=== PATIENT | female | born 1975 | race Caucasian/White ===

== ENCOUNTER 2017-01-28 00:12 | Observation (INO) | payer OTHER ==
[2017-01-28] VITALS (7 sets, daily range): BP systolic 103–121; BP diastolic 55–73
[~2017-01-28] VITALS: Ht 160 cm; Wt 72.1 kg
--- NOTE | 2017-01-28 03:54 | ED CLINICAL REPORT ---
Clinical Report - Physicians/Mid Levels [facility] [address] [place] [address] 01/28/2017 0:15 Patient: SOLOMON SWAN Time Seen: 00:42. Arrived- By private vehicle. Historian- patient. HISTORY OF PRESENT ILLNESS Chief Complaint: PALPITATIONS. Modifying factors- (improves with movement). This started several days ago and is still present and now worse. History of caffeine use prior to onset. No history of decongestants use prior to onset, cocaine use prior to onset or amphetamine use prior to onset. It was gradual in onset and has been constant and waxing/waning. It is described as missing beats. She did not lose consciousness. She felt like might "pass out" and complains of dizziness. The patient has had generalized chest tightness. No difficulty breathing or sweating episodes. She has had dizziness and tingling in hands. REVIEW OF SYSTEMS Last normal menstrual period- she has not had one for 4 or 5 years due to her BC implant. No chills, fever, sweats, calf pain or difficulty breathing. No pedal edema, abdominal pain, black stools, bloody stools or diarrhea. No nausea, vomiting or urinary problems. The patient has had mild constipation (chronically). She has had similar symptoms previously. All systems otherwise negative, except as recorded above. PAST HISTORY PCP - [facility]. SOCIAL HISTORY Smoker- current status unknown (chews tobacco). Regular alcohol use. No drug use. Is a local resident. FAMILY HISTORY Cancer in grandparent. ADDITIONAL NOTES The nursing notes have been reviewed. PHYSICAL EXAM Vital Signs: 01/28/2017 00:23 BP: 143/81. HR: 91. RR: 15. O2 saturation: 100%. Temp: 98.5 F. Sarmiento-Hyed pain scale: 2/10. Have been reviewed. Appearance: Alert. Eyes: Pupils equal, round and reactive to light. ENT: Pharynx normal. Neck: Normal inspection. Neck supple. CVS: Normal heart rate and rhythm. Heart sounds normal. Respiratory: No respiratory distress. Breath sounds normal. Abdomen: Soft and nontender. Bowel sounds normal. No organomegaly. No mass. Back: Normal external inspection. No CVA tenderness. Skin: Skin warm and dry. Normal skin color. Normal skin turgor. Extremities: Extremities exhibit normal ROM. No calf tenderness. No lower extremity edema. LABS, X-RAYS, AND EKG EKG: Rate: 81. Incomplete RBBB. Mild ST depression in lead II, III, aVF, V4, V5 and V6. T wave inversion in lead II, III, aVF, V1, V2, V3 and V4. EKG #2: Incomplete RBBB. T wave inversion in lead aVF, V1, V2 and V4 and flattening in lead aVF, V5 and V6. EKG unchanged when compared with prior EKG. (from earlier this visit). Chest X-ray: No acute disease. Laboratory Tests: CBC w Diff: (AGUSTINA: 01/28/2017 00:35) ( [facility] 01/28/2017 00:51) Final results Test Result Flag Units (Reference) WHITE BLOOD COUNT 5.3 K/uL (4.5-11.5) RED BLOOD COUNT 4.98 M/uL (4.00-5.20) HEMOGLOBIN 15.2 gm/dL (12.0-16.0) HEMATOCRIT 44.6 % (36.0-46.0) MEAN CELL VOLUME 90 fL (80-100) MEAN CORPUSCULAR HGB 31 pg (26-34) MEAN CORPUSCULAR HGB CONC 34 g/dL (31-37) RED CELL DISTRIBUTION WIDTH 12.6 % (11.6-14.8) PLATELET COUNT 236 K/uL (150-400) NEUTROPHIL % 40.8 L % (50-75) LYMPH % 46.0 H % (25-40) MONO % 8.3 % (3-14) EOSINOPHIL % 4.1 H % (0-4) BASOPHIL % 0.8 % (0-2) PT with INR: (AGUSTINA: 01/28/2017 00:35) ( [facility] 01/28/2017 00:51) Final results Test Result Flag Units (Reference) INR 0.9 (0.8-1.2) Low Intensity Therapy: INR 1.5-2.0 PT range 18.5-23.1Mod.Intensity Therapy: INR 2.0-3.0 PT range 23.1-31.5High Intensity Therapy: INR 2.5-3.5 PT range 27.4-35.5High Intensity Therapy 2: INR 3.0-4.0 PT range 31.5-39.3 APTT 29 SECONDS (24-34) D-DIMER QUANTITATIVE < 0.27 L ug/mLFEU (0.27-0.52) The primary value of this quantitative assay relates toits negative predictive value (i.e. exclusion) of pulmonaryembolism/deep vein thrombosis/DIC.Elevated levels of d-dimer may also occur with:, age, cancer, inflammation, liver disease,post-op, infection, hematoma, coronary disease, peripheralarteriopathy, bleeding disorders and thrombolytic treatment.Results should be correlated with other clinical andradiological data.Testing Methodology: Latex Immunoassay [id number]: (AGUSTINA: 01/28/2017 00:33) ( [facility] 01/28/2017 03:07) Final results Test Result Flag Units (Reference) FREE T4 (FREE THYROXINE) 1.08 ng/dL (0.78-4.13) Ethyl Alcohol: (AGUSTINA: 01/28/2017 00:33) ( [facility] 01/28/2017 01:43) Final results Test Result Flag Units (Reference) ETHYL ALCOHOL <3 L mg/dL (3-10) TSH: (AGUSTINA: 01/28/2017 00:33) ( [facility] 01/28/2017 01:43) Final results Test Result Flag Units (Reference) THYROID STIMULATING HORMONE 5.221 H uIU/mL (0.34-3.74) CHEM 13 PANEL: (AGUSTINA: 01/28/2017 00:35) ( [facility] 01/28/2017 00:58) Final results Test Result Flag Units (Reference) GLUCOSE 105 mg/dL (70-110) BUN 10 mg/dL (7-18) CREATININE 0.8 mg/dL (0.6-1.3) Estimated GFR >60 mL/min Estimated GFR- >60 mL/min Note: Persistent reduction over 3 months in eGFR<60 mL/min/1.73 m2 defines CKD. Patients with eGFR values>=60 mL/min/1.73 m2 may also have CKD if evidence ofpersistent proteinuria. Additional information may be foundat [email or web address].org. SODIUM 141 mmol/L (136-145) POTASSIUM 3.5 mmol/L (3.5-5.1) CHLORIDE 105 mmol/L (98-107) CARBON DIOXIDE 26 mmol/L (21-32) CALCIUM 9.2 mg/dL (8.5-10.1) TOTAL PROTEIN 7.7 g/dL (6.4-8.2) ALBUMIN 4.1 g/dL (3.3-5.0) BILIRUBIN, TOTAL 0.6 mg/dL (0.0-1.0) ALKALINE PHOSPHATASE 83 U/L (46-116) AST (SGOT) 24 U/L (15-37) ALT (SGPT) 45 U/L (12-78) MAGNESIUM 1.8 mg/dL (1.8-2.4) CPK 131 U/L (24-260) TROPONIN I <0.05 L ng/mL (0.00-1.5) TROPONIN REFERENCE RANGE:<0.1 NEGATIVE0.1-1.5 INDETERMINANT>1.5 POSITIVE . PROGRESS AND PROCEDURES Discussed case with hospitalist, (Karen). Reviewed test results and need for additional work-up. Agreed upon treatment plan and need for patient follow-up. Health care provider will see patient in hospital. Patient/family counseled. Old medical records ordered. Old records unavailable. Disposition: Admitted. Observation. CLINICAL IMPRESSION Chest pain. Abnormal EKG: depressed ST segments and inverted T waves. Palpitations. Abnormal tests. Hypothyroidism. INSTRUCTIONS Prescription Medications: Levothyroxine 25 mcg: take 1 orally every 24 hours. Dispense thirty (30). No refills. (Electronically signed by Jeremy Mendez MD 02/01/2017 21:19)
--- NOTE | 2017-01-28 03:54 | ED ORDER SUMMARY ---
..... Patient: SOLOMON SWAN OrderSheet [facility] VisitID: [id number] [place], [place] [id number] 41y, F Registration Date/Time: 01/28/2017 ORDER SHEET Weight: 68.0 kg (stated) Allergies: Penicillins GENERAL ORDERS: Chest 1V Urgent (00:31 01/28/2017 [facility] Vp Customer Development verbal order read back to Grace CALL) (Ack 0:34 SRedmond) (0:41 GUnger) Cardiac Panel Stat (00:32 01/28/2017 [facility] [employer]p Customer Development verbal order read back to Grace CALL) (Ack 0:34 SRedmond) (1:05 RCollier R.N.) PT with INR Urgent (00:32 01/28/2017 [facility] [employer] Customer Development verbal order read back to Grace CALL) (Ack 0:34 SRedmond) (1:05 RCollier R.N.) PTT Urgent (00:32 01/28/2017 [facility] [employer]p Customer Development verbal order read back to Grace CALL) (Ack 0:34 SRedmond) (1:05 RCollier R.N.) D-Dimer Urgent (00:32 01/28/2017 [facility] [employer] Development verbal order read back to Grace CALL) (Ack 0:34 SRedmond) (1:05 RCollier R.N.) - (EKG, POSS PROV) (00:34 01/28/2017 [facility] [employer]p Customer Development verbal order read back to Grace CALL) (0:40 SRedmond) TSH Urgent (01:19 01/28/2017 Grace CALL) (Ack 1:23 SRedmond) (1:27 CFalkner R.N.) Ethyl Alcohol Urgent (01:22 01/28/2017 Grace CALL) (Ack 1:23 SRedmond) (2:28 RCollier R.N.) CPK (draw at 03:35) Urgent (02:30 01/28/2017 Grace CALL) (Ack 2:35 SRedmond) (3:44 [facility] Vp Customer Development) Troponin-I (draw at 03:35) Urgent (02:30 01/28/2017 Grace CALL) (Ack 2:35 SRedmond) (3:44 [facility] Vp Customer Development) EKG - ER (perform at 03:35) Stat (02:30 01/28/2017 Grace CALL) (Ack 2:34 SRedmond) (3:44 [facility] Vp Customer Development) FT4(Free T4) Urgent (02:46 01/28/2017 Grace CALL) (Ack 2:48 SRedmond) (3:44 [facility] ER Vp Customer Development) MEDICATION ORDERS: Aspirin PO 325 mg (NOW) (00:54 01/28/2017 Grace CALL) (Ack 1:05 RCollier R.N.) (1:07 Jairon R.N.) IV FLUIDS: IV Saline Lock (00:48 01/28/2017 Grace CALL) (Ack 1:05 RCollier R.N.) ORDER SHEET NOTES: [Electronically signed by Holly Chang R.N. (05:28 01/28/2017)] [Electronically signed by Jeremy Mendez MD (21:19 02/01/2017)] [Electronically locked/signed by Holly Chang R.N. (:01/28/2017)]
--- NOTE | 2017-01-28 03:54 | ED NURSING NOTES ---
Clinical Report - Nurses [facility] [address] [place] [address] 01/28/2017 0:15 Patient: SOLOMON SWAN TRIAGE Triage time 00:23. Acuity: LEVEL 3. Chief Complaint: LEFT ARM PAIN, NECK PAIN and BACK PAIN (heart palpitations). Alert. No acute distress. --00:29 Holly Chang R.N. 00:23 01/28/17. BP: 143/81 taken on the left arm, while sitting. HR: 91. RR: 15 (regular and unlabored). O2 saturation: 100% on room air. Temp: 98.5 F (oral). Sarmiento-Hyde pain scale: 2/10. --00:29 Holly Chang R.N. Weight: 68 kg stated. Height/Length: 63 inches Per Patient. BMI: 26.6. --00:26 Holly Chang R.N. Medications None. --00:24 Holly Chang R.N. Allergies Penicillins. ("heart problems") --00:24 Holly Chang R.N. History Arrived by private vehicle. Historian: patient. Primary physician ([facility]). Onset. (about 3 days ago). 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 PAST MEDICAL HX: Immunizations: up-to-date. Last normal menstrual period unknown. Uses depo implants. SOCIAL HX: Smoker- current status unknown (uses chewing tobacco). Heavy alcohol use; consumes liquor. No drug use. NUTRITIONAL RISK ASSESSMENT: The nutritional risk assessment revealed no deficiencies. FUNCTIONAL ASSESSMENT: Functional assessment: no impairments noted. --00: Holly Chang R.N. PROBLEMS: no known problems. ADDITIONAL SURGERIES: no known surgeries. Interventions ID band on patient. To treatment room. --00: Holly Chang R.N. PHYSICAL ASSESSMENT Ambulatory to room. Patient gowned. GENERAL / NEURO / PSYCH: Alert. Oriented X 4. Appears in no acute distress. HEENT: Mucous membranes are pink. RESPIRATORY: Respirations not labored. CVS: Capillary refill less than 2 seconds. SKIN: Skin is warm and dry. --00:29 Holly Chang R.N. NURSING PROGRESS NOTES Head of bed elevated. Two patient identifiers checked. Call light placed in reach. Side rails up x 1. Bed placed in lowest position. Brakes of bed on. --00:29 Holly Chang R.N. Patient ready for evaluation- chart flagged. --00:29 Holly Chang R.N. EKG time: (0029). EKG was ordered, performed by a tech and shown to the ED physician. --00:33 Jamie Recinos, ER Mortgage Assistant 00:35 01/28/2017 Site #1 started via IV in the right antecubital space with an 20g angiocath, with aseptic technique and good blood return; one attempt. Blood drawn: rainbow set. Labeled in the presence of the patient and sent to the lab. Saline lock flushed with 10 mL saline. --01:06 Flo Tavarez R.N. 01:07 01/28/2017 Aspirin PO Tablets 325 mg given. Allergies verified and confirmed 5 rights. --01:07 Holly Chang R.N. 02:27 01/28/17. BP: 110/64. HR: 73. RR: 15. O2 saturation: 100% on room air. --02:28 Holly Chang R.N. EKG time: (0341). EKG was ordered, performed by a tech and shown to the ED physician. repeat. --03:55 Jamie Recinos, ER Mortgage Assistant. DISPOSITION / DISCHARGE 05:17 01/28/17. BP: 119/60. HR: 72. RR: 15. O2 saturation: 100% on room air. Pain level now: 11/19. --05:18 Holly Chang R.N. Report was given to a nurse via a phone call. Report included patient's care, treatment, medications, reviewed medication reconcilliation, and condition (including any recent changes or anticipated changes). All questions were answered. Report was acknowledged. (To JEFFERY Singleton). --05:21 Holly Chang R.N. Patient's personal items include: shirt, undergarments, wallet and cell phone; items were placed in belongings bag and transported with the patient. Collection of belongings was witnessed by 1 nurse. --05:28 Holly Chang R.N. Transported via stretcher by tech with IV. --05: Holly Chang R.N. 05:28 01/28/2017 Site #[address] upon admission; flushes easily. --05:28 Holly Chang R.N. Locked/Released at 01/28/2017 5:28 by Holly Chang R.N.
--- NOTE | 2017-01-28 03:54 | ED ORDER SUMMARY ---
..... Patient: SOLOMON SWAN OrderSheet [facility] VisitID: [id number] [place], [place] [id number] 41y, F Registration Date/Time: 01/28/2017 ORDER SHEET Weight: 68.0 kg (stated) Allergies: Penicillins GENERAL ORDERS: Chest 1V Urgent (00:31 01/28/2017 [facility] Guest Services Assistant verbal order read back to Grace CALL) (Ack 0:34 SRedmond) (0:41 GUnger) Cardiac Panel Stat (00:32 01/28/2017 [facility] Guest Services Assistant verbal order read back to Grace CALL) (Ack 0:34 SRedmond) (1:05 RCollier R.N.) PT with INR Urgent (00:32 01/28/2017 [facility] Guest Services Assistant verbal order read back to Grace CALL) (Ack 0:34 SRedmond) (1:05 RCollier R.N.) PTT Urgent (00:32 01/28/2017 [facility] Guest Services Assistant verbal order read back to Grace CALL) (Ack 0:34 SRedmond) (1:05 RCollier R.N.) D-Dimer Urgent (00:32 01/28/2017 [facility] Guest Services Assistant verbal order read back to Grace CALL) (Ack 0:34 SRedmond) (1:05 RCollier R.N.) - (EKG, POSS PROV) (00:34 01/28/2017 [facility] Guest Services Assistant verbal order read back to Grace CALL) (0:40 SRedmond) TSH Urgent (01:19 01/28/2017 Grace CALL) (Ack 1:23 SRedmond) (1:27 CFalkner R.N.) Ethyl Alcohol Urgent (01:22 01/28/2017 Grace CALL) (Ack 1:23 SRedmond) (2:28 RCollier R.N.) CPK (draw at 03:35) Urgent (02:30 01/28/2017 rGace CALL) (Ack 2:35 SRedmond) (3:44 [facility] ER Guest Services Assistant) Troponin-I (draw at 03:35) Urgent (02:30 01/28/2017 Grace CALL) (Ack 2:35 SRedmond) (3:44 [facility] ER Guest Services Assistant) EKG - ER (perform at 03:35) Stat (02:30 01/28/2017 Grace CALL) (Ack 2:34 SRedmond) (3:44 [facility] ER Guest Services Assistant) FT4(Free T4) Urgent (02:46 01/28/2017 Grace CALL) (Ack 2:48 SRedmond) (3:44 [facility] ER Guest Services Assistant) MEDICATION ORDERS: Aspirin PO 325 mg (NOW) (00:54 01/28/2017 Grace CALL) (Ack 1:05 RCollier R.N.) (1:07 Jairon R.N.) IV FLUIDS: IV Saline Lock (00:48 01/28/2017 Grace CALL) (Ack 1:05 RCollier R.N.) ORDER SHEET NOTES: [Electronically signed by Holly Chang R.N. (05:28 01/28/2017)] [Electronically signed by Jeremy Mendez MD (21:19 02/01/2017)] [Electronically locked/signed by Holly Chang R.N. (:01/28/2017)]
--- NOTE | 2017-01-28 03:54 | ED NURSING NOTES ---
Clinical Report - Nurses [facility] [address] [place] [address] 01/28/2017 0:15 Patient: SOLOMON SWAN TRIAGE Triage time 00:23. Acuity: LEVEL 3. Chief Complaint: LEFT ARM PAIN, NECK PAIN and BACK PAIN (heart palpitations). Alert. No acute distress. --00:29 Holly Chang R.N. 00:23 01/28/17. BP: 143/81 taken on the left arm, while sitting. HR: 91. RR: 15 (regular and unlabored). O2 saturation: 100% on room air. Temp: 98.5 F (oral). Sarmiento-Hyde pain scale: 2/10. --00:29 Holly Chang R.N. Weight: 68 kg stated. Height/Length: 63 inches Per Patient. BMI: 26.6. --00:26 Holly Chnag R.N. Medications None. --00:24 Holly Chang R.N. Allergies Penicillins. ("heart problems") --00:24 Holly Chang R.N. History Arrived by private vehicle. Historian: patient. Primary physician ([facility]). Onset. (about 3 days ago). 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 (81mg last dose today 1hr PAVING FOREMAN). PAST MEDICAL HX: Immunizations: up-to-date. Last normal menstrual period unknown. Uses depo implants. SOCIAL HX: Smoker- current status unknown (uses chewing tobacco). Heavy alcohol use; consumes liquor. No drug use. NUTRITIONAL RISK ASSESSMENT: The nutritional risk assessment revealed no deficiencies. FUNCTIONAL ASSESSMENT: Functional assessment: no impairments noted. --00: Holly Chang R.N. PROBLEMS: no known problems. ADDITIONAL SURGERIES: no known surgeries. Interventions ID band on patient. To treatment room. --00: Holly Chang R.N. PHYSICAL ASSESSMENT Ambulatory to room. Patient gowned. GENERAL / NEURO / PSYCH: Alert. Oriented X 4. Appears in no acute distress. HEENT: Mucous membranes are pink. RESPIRATORY: Respirations not labored. CVS: Capillary refill less than 2 seconds. SKIN: Skin is warm and dry. --00:29 Holly Chang R.N. NURSING PROGRESS NOTES Head of bed elevated. Two patient identifiers checked. Call light placed in reach. Side rails up x 1. Bed placed in lowest position. Brakes of bed on. --00:29 Holly Chang R.N. Patient ready for evaluation- chart flagged. --00:29 Holly Chang R.N. EKG time: (0029). EKG was ordered, performed by a tech and shown to the ED physician. --00:33 Jamie Recinos, ER Automotive Glass Mechanic 00:35 01/28/2017 Site #1 started via IV in the right antecubital space with an 20g angiocath, with aseptic technique and good blood return; one attempt. Blood drawn: rainbow set. Labeled in the presence of the patient and sent to the lab. Saline lock flushed with 10 mL saline. --01:06 Flo Tavarez R.N. 01:07 01/28/2017 Aspirin PO Tablets 325 mg given. Allergies verified and confirmed 5 rights. --01:07 Holly Chang R.N. 02:27 01/28/17. BP: 110/64. HR: 73. RR: 15. O2 saturation: 100% on room air. --02:28 Holly Chang R.N. EKG time: (0341). EKG was ordered, performed by a tech and shown to the ED physician. repeat. --03:55 Jamie Recinos, ER Automotive Glass Mechanic. DISPOSITION / DISCHARGE 05:17 01/28/17. BP: 119/60. HR: 72. RR: 15. O2 saturation: 100% on room air. Pain level now: 11/19. --05:18 Holly Chang R.N. Report was given to a nurse via a phone call. Report included patient's care, treatment, medications, reviewed medication reconcilliation, and condition (including any recent changes or anticipated changes). All questions were answered. Report was acknowledged. (To JEFFERY Singleton). --05:21 Holly Chang R.N. Patient's personal items include: shirt, undergarments, wallet and cell phone; items were placed in belongings bag and transported with the patient. Collection of belongings was witnessed by 1 nurse. --05:28 Holly Chang R.N. Transported via stretcher by tech with IV. --05: Holly Chang R.N. 05:28 01/28/2017 Site #[address] upon admission; flushes easily. --05:28 Holly Chang R.N. Locked/Released at 01/28/2017 5:28 by Holly Chang R.N.
--- NOTE | 2017-01-28 03:54 | ED CLINICAL REPORT ---
Clinical Report - Physicians/Mid Levels [facility] [address] [address] 01/28/2017 0:15 Patient: SOLOMON SWAN Time Seen: 00:42. Arrived- By private vehicle. Historian- patient. HISTORY OF PRESENT ILLNESS Chief Complaint: PALPITATIONS. Modifying factors- (improves with movement). This started several days ago and is still present and now worse. History of caffeine use prior to onset. No history of decongestants use prior to onset, cocaine use prior to onset or amphetamine use prior to onset. It was gradual in onset and has been constant and waxing/waning. It is described as missing beats. She did not lose consciousness. She felt like might "pass out" and complains of dizziness. The patient has had generalized chest tightness. No difficulty breathing or sweating episodes. She has had dizziness and tingling in hands. REVIEW OF SYSTEMS Last normal menstrual period- she has not had one for 4 or 5 years due to her BC implant. No chills, fever, sweats, calf pain or difficulty breathing. No pedal edema, abdominal pain, black stools, bloody stools or diarrhea. No nausea, vomiting or urinary problems. The patient has had mild constipation (chronically). She has had similar symptoms previously. All systems otherwise negative, except as recorded above. PAST HISTORY PCP - [facility]. SOCIAL HISTORY Smoker- current status unknown (chews tobacco). Regular alcohol use. No drug use. Is a local resident. FAMILY HISTORY Cancer in grandparent. ADDITIONAL NOTES The nursing notes have been reviewed. PHYSICAL EXAM Vital Signs: 01/28/2017 00:23 BP: 143/81. HR: 91. RR: 15. O2 saturation: 100%. Temp: 98.5 F. Sarmiento-Hyde pain scale: 2/10. Have been reviewed. Appearance: Alert. Eyes: Pupils equal, round and reactive to light. ENT: Pharynx normal. Neck: Normal inspection. Neck supple. CVS: Normal heart rate and rhythm. Heart sounds normal. Respiratory: No respiratory distress. Breath sounds normal. Abdomen: Soft and nontender. Bowel sounds normal. No organomegaly. No mass. Back: Normal external inspection. No CVA tenderness. Skin: Skin warm and dry. Normal skin color. Normal skin turgor. Extremities: Extremities exhibit normal ROM. No calf tenderness. No lower extremity edema. LABS, X-RAYS, AND EKG EKG: Rate: 81. Incomplete RBBB. Mild ST depression in lead II, III, aVF, V4, V5 and V6. T wave inversion in lead II, III, aVF, V1, V2, V3 and V4. EKG #2: Incomplete RBBB. T wave inversion in lead aVF, V1, V2 and V4 and flattening in lead aVF, V5 and V6. EKG unchanged when compared with prior EKG. (from earlier this visit). Chest X-ray: No acute disease. Laboratory Tests: CBC w Diff: (AGUSTINA: 01/28/2017 00:35) ( [facility] 01/28/[place] 00:51) Final results Test Result Flag Units (Reference) WHITE BLOOD COUNT 5.3 K/uL (4.5-11.5) RED BLOOD COUNT 4.98 M/uL (4.00-5.20) HEMOGLOBIN 15.2 gm/dL (12.0-16.0) HEMATOCRIT 44.6 % (36.0-46.0) MEAN CELL VOLUME 90 fL (80-100) MEAN CORPUSCULAR HGB 31 pg (26-34) MEAN CORPUSCULAR HGB CONC 34 g/dL (31-37) RED CELL DISTRIBUTION WIDTH 12.6 % (11.6-14.8) PLATELET COUNT 236 K/uL (150-400) NEUTROPHIL % 40.8 L % (50-75) LYMPH % 46.0 H % (25-40) MONO % 8.3 % (3-14) EOSINOPHIL % 4.1 H % (0-4) BASOPHIL % 0.8 % (0-2) PT with INR: (AGUSTINA: 01/28/2017 00:35) ( [facility] 01/28/2017 00:51) Final results Test Result Flag Units (Reference) INR 0.9 (0.8-1.2) Low Intensity Therapy: INR 1.5-2.0 PT range 18.5-23.1Mod.Intensity Therapy: INR 2.0-3.0 PT range 23.1-31.5High Intensity Therapy: INR 2.5-3.5 PT range 27.4-35.5High Intensity Therapy 2: INR 3.0-4.0 PT range 31.5-39.3 APTT 29 SECONDS (24-34) D-DIMER QUANTITATIVE < 0.27 L ug/mLFEU (0.27-0.52) The primary value of this quantitative assay relates toits negative predictive value (i.e. exclusion) of pulmonaryembolism/deep vein thrombosis/DIC.Elevated levels of d-dimer may also occur with:, age, cancer, inflammation, liver disease,post-op, infection, hematoma, coronary disease, peripheralarteriopathy, bleeding disorders and thrombolytic treatment.Results should be correlated with other clinical andradiological data.Testing Methodology: Latex Immunoassay [id number]: (AGUSTINA: 01/28/2017 00:33) ( [facility] 01/28/2017 03:07) Final results Test Result Flag Units (Reference) FREE T4 (FREE THYROXINE) 1.08 ng/dL (0.78-4.13) Ethyl Alcohol: (AGUSTINA: 01/28/2017 00:33) ( [facility] 01/28/2017 01:43) Final results Test Result Flag Units (Reference) ETHYL ALCOHOL <3 L mg/dL (3-10) TSH: (AGUSTINA: 01/28/2017 00:33) ( [facility] 01/28/2017 01:43) Final results Test Result Flag Units (Reference) THYROID STIMULATING HORMONE 5.221 H uIU/mL (0.34-3.74) CHEM 13 PANEL: (AGUSTINA: 01/28/2017 00:35) ( [facility] 01/28/2017 00:58) Final results Test Result Flag Units (Reference) GLUCOSE 105 mg/dL (70-110) BUN 10 mg/dL (7-18) CREATININE 0.8 mg/dL (0.6-1.3) Estimated GFR >60 mL/min Estimated GFR- >60 mL/min Note: Persistent reduction over 3 months in eGFR<60 mL/min/1.73 m2 defines CKD. Patients with eGFR values>=60 mL/min/1.73 m2 may also have CKD if evidence ofpersistent proteinuria. Additional information may be foundat [email or web address]. SODIUM 141 mmol/L (136-145) POTASSIUM 3.5 mmol/L (3.5-5.1) CHLORIDE 105 mmol/L (98-107) CARBON DIOXIDE 26 mmol/L (21-32) CALCIUM 9.2 mg/dL (8.5-10.1) TOTAL PROTEIN 7.7 g/dL (6.4-8.2) ALBUMIN 4.1 g/dL (3.3-5.0) BILIRUBIN, TOTAL 0.6 mg/dL (0.0-1.0) ALKALINE PHOSPHATASE 83 U/L (46-116) AST (SGOT) 24 U/L (15-37) ALT (SGPT) 45 U/L (12-78) MAGNESIUM 1.8 mg/dL (1.8-2.4) CPK 131 U/L (24-260) TROPONIN I <0.05 L ng/mL (0.00-1.5) TROPONIN REFERENCE RANGE:<0.1 NEGATIVE0.1-1.5 INDETERMINANT>1.5 POSITIVE . PROGRESS AND PROCEDURES Discussed case with hospitalist, (Karen). Reviewed test results and need for additional work-up. Agreed upon treatment plan and need for patient follow-up. Health care provider will see patient in hospital. Patient/family counseled. Old medical records ordered. Old records unavailable. Disposition: Admitted. Observation. CLINICAL IMPRESSION Chest pain. Abnormal EKG: depressed ST segments and inverted T waves. Palpitations. Abnormal tests. Hypothyroidism. INSTRUCTIONS Prescription Medications: Levothyroxine 25 mcg: take 1 orally every 24 hours. Dispense thirty (30). No refills. (Electronically signed by Jeremy Mendez MD 02/01/2017 21:19)
--- NOTE | 2017-01-28 05:44 | Progress Note ---
Subjective General General Admission History and Physical Examination Patient Name: Areli Moon Admission Date: January 28, 2017 Primary Care Provider: None Attending Physician: Boris Jones M.D. Admitting Physician: Boris Jones M.D. Code Status: Full Code Room: 101 SUBJECTIVE Historian: Patient Reliability: Good Chief Complaint: Palpatations Left upper back pain chest pain History of Present Illness: The patient is a 41-year-old white female without a significant past medical history who began to experience worsening chest palpitations over the past 3 days. Patient has had no other known cardiac workup for heart disease. . Secondary to the above, the patient was admitted under observation by Boris Gutierrez for further evaluation and treatment. The history of present illness began more than 3 days prior to the day of admission . Patient reports the complaint has been steady. Patient generally reports of a palpatory movement of the heart. She does not necessarily feel flutter. She does not feel short of breath, dyspneic. She is relatively normal appetite. She does report that she's been under additional stress recently with relationship and his work. While in the ED, patient was seen with as being anxious and with complaints of heart plapations. Cardiac enzymes did not prove conclusive after second draw. Patient had EKG that was done which showed conversion to waves along with ST segment depressions in the lateral leads and elevation in the anterior lead. Patient was held for enzyme draws, but elected to admit to observation under internal medicine. Patient will be scheduled for cardiac stress tests to prove conclusively whether the palpitations related to irregular heart rate secondary to ischemic changes. PAST MEDICAL HISTORY Illnesses: 1. Seasonal allergies Allergies: 1. No Known Drug Allergies Medications: 1. Flonase daily. Intranasal Surgery: none Injuries: 1. No significant Hospitalizations: 1. None FAMILY HISTORY Mother and father alive, well and healthy SOCIAL HISTORY 1. Marital Status: Single 4. Employment History: [employer]. 5. Occupational health exposures: Unknown HABITS 1. Tobacco: Nicotine in the form of snuff. 2. Drugs: none 3. Alcohol: Social HEALTH SUPERVISION Item/Test 1. Not reviewed IMMUNIZATIONS: 1. Pneumococcal: Non previous 2. Influenza: Unknown 3. Tetanus: Unknown REVIEW OF SYSTEMS Remarkable for those things stated in the history of present illness and past medical history. Seventeen point review of system completed with the following notable findings Skin: normal Eyes: normal Mouth: none Respiratory: SOB at times Cardiovascular: none Musculoskeletal: Joint stiffness, Psychological: anxiety Physical Exam Vital Signs / I&Os T 98.2 bp 121/59 hr 81 rr 16 98% RA General Appearance Alert, Oriented X3, Cooperative HEENT Atraumatic, PERRLA, EOMI Lungs Clear to auscultation, Normal air movement Neck Supple Cardiovascular Normal S1 and S2, regular irregular Abdomen Soft, No tenderness Extremities No cyanosis, No clubbing Skin No Significant Lesions Neurological Normal gait, Normal speech Psych/Mental Status anxious; amenable LAB Results Laboratory Tests 01/28 01/28 01/28 01/28 0033 0033 0035 0335 Chemistry Plasma Sodium (136 - 145 mmol/L) 141 Plasma Potassium (3.5 - 5.1 mmol/L) 3.5 Plasma Chloride (98 - 107 mmol/L) 105 CO2 (Enzymatic) (21 - 32 mmol/L) 26 BUN (7 - 18 mg/dL) 10 Creatinine (0.6 - 1.3 mg/dL) 0.8 Est GFR ( Amer) (mL/min) >60 Est GFR (Non-Af Amer) (mL/min) >60 Glucose (70 - 110 mg/dL) 105 Plasma Calcium (8.5 - 10.1 mg/dL) 9.2 Plasma Magnesium (1.8 - 2.4 mg/dL) 1.8 Total Bilirubin (0.0 - 1.0 mg/dL) 0.6 AST (15 - 37 U/L) 24 ALT (12 - 78 U/L) 45 Alkaline Phosphatase (46 - 116 U/L) 83 Creatine Kinase (24 - 260 U/L) 131 110 Troponin (0.00 - 1.5 ng/mL) <0.05 <0.05 Total Protein (6.4 - 8.2 g/dL) 7.7 Albumin (3.3 - 5.0 g/dL) 4.1 Free T4 Calculated (0.78 - 4.13 ng/dL) 1.08 TSH 3rd Generation (0.34 - 3.74 uIU/mL) 5.221 Coagulation INR (0.8 - 1.2) 0.9 APTT (24 - 34 SECONDS) 29 D-Dimer, Quantitative (0.27 - 0.52 ug/mLFEU) < 0.27 Hematology WBC (4.5 - 11.5 K/uL) 5.3 RBC (4.00 - 5.20 M/uL) 4.98 Hgb (12.0 - 16.0 gm/dL) 15.2 Hct (36.0 - 46.0 %) 44.6 MCV (80 - 100 fL) 90 MCH (26 - 34 pg) 31 RDW (11.6 - 14.8 %) 12.6 Neut % (Auto) (50 - 75 %) 40.8 Lymph % (Auto) (25 - 40 %) 46.0 [place] % (Auto) (3 - 14 %) 8.3 Eos % (Auto) (0 - 4 %) 4.1 Baso % (Auto) (0 - 2 %) 0.8 Plt Count, EDTA (150 - 400 K/uL) 236 PUBS MCHC (31 - 37 g/dL) 34 Toxicology Plasma/Serum Ethyl Alc (3 - 10 mg/dL) <3 Microbiology Date/Time Procedure - Status Source Growth 01/29 412 MRSA Screen - COLB NASAL Assessment and Plan Problem List 1. Palpitations Plan Extended history of intermittent palpitations of heart, now progressively worsening over the past 3 days. There may be a cardiac causation suggestive of ischemic changes of the cardiac muscle. Plan to perform a cardiac stress test today. 2. Abnormal EKG Plan EKG shown abnormality. There are ST wave inversions along with depressions in the lateral leads; along with ST segmental changes in the lateral leads and elevations in the anterior leads. React stress test me help to induce the physiological change. 3. Hypothyroid Plan MRSA Department with elevated TSH normalized free T4. Starting 25 g levothyroxine daily. Needs follow-up with primary care and for management purposes. 4. Chest pain Plan Chest pain is really upper back pain. Patient reports that the pain has been ongoing for more than 3 days. Reporting of radiation of pain to the neck and upper extremity. Plan to have patient on a stress test to rule out ischemic causation for the symptoms. E&M Codes Roundin
--- NOTE | 2017-01-28 07:09 | DIAGNOSTIC IMAGING REPORT ---
PROCEDURE: XR CHEST 1 VIEW INDICATION: CHEST PAIN TECHNIQUE: Portable AP view 12:38 a.m. COMPARISON: None. FINDINGS: Questionable medial right basilar infiltrate. Heart and mediastinum are normal. Thorax is normal. IMPRESSION: 1. Questionable medial right basilar infiltrate. Recommend two-view chest x-ray
--- NOTE | 2017-01-28 08:11 | Progress Note ---
Subjective General Note Date: January 28, 2017 Admission Date: January 28, 2017 Hospital Day: 1 PCP: None Status: Patient Advanced Directive: FULL CODE Room: 305 Brief History: The patient is a 41-year-old white female without a significant past medical history who began to experience worsening chest palpitations over the past 3 days. Patient has had no other known cardiac workup for heart disease. . Secondary to the above, the patient was admitted under observation by Boris Jones M.D for further evaluation and treatment. For other history present illness, past medical history, family history, social history, review of systems, and admission physical examination please see the patient's history and physical examination and ER visit note in the patient's medical record. Subjective: The patient states she is doing well today. Ambulating without problems. No arrhythmias noted. No chest pain. Patient has had some back pain Patient requests: None Medications and Allergies Medications Current Medications Sig/Deanna Start time Last Medication Dose Route Stop Time Status Admin Acetaminophen 650 MG Q4H PRN 01/28 515 AC PO Al Hydrox/Mg Hydrox/ 30 ML PRN PRN 01/28 515 AC Simethicone PO Docusate Sodium 100 MG BID PRN 01/28 515 AC PO Magnesium Hydroxide 10 ML DAILY PRN 01/28 515 AC PO Nitroglycerin 0.4 MG Q5MIN PRN 01/28 515 AC SL Ondansetron HCl 4 MG Q6H PRN 01/28 515 AC IV Allergies Coded Allergies: Ibuprofen (01/28/17) Penicillins (01/28/17) Physical Exam Vital Signs / I&Os Vital Signs Date Time Temp Pulse Resp B/P Pulse O2 O2 Flow FiO2 Ox Delivery Rate 01/28 521 98.2 81 16 121/59 98 Room Air 0.0 General Appearance Alert, Oriented X3, Cooperative, No acute distress Lungs Clear to auscultation, Normal air movement Cardiovascular Regular rate and rhythm, Normal S1 and S2, No murmurs, gallops, rubs Abdomen Normal bowel sounds, Soft, No tenderness Extremities No cyanosis, No clubbing, No edema Neurological Cranial nerves intact, No lateralizing signs Psych/Mental Status Mental status normal, Mood normal LAB Results Laboratory Tests 01/28 01/28 01/28 01/28 0335 0035 0033 0033 Chemistry Plasma Sodium (136 - 145 mmol/L) 141 Plasma Potassium (3.5 - 5.1 mmol/L) 3.5 Plasma Chloride (98 - 107 mmol/L) 105 CO2 (Enzymatic) (21 - 32 mmol/L) 26 BUN (7 - 18 mg/dL) 10 Creatinine (0.6 - 1.3 mg/dL) 0.8 Est GFR ( Amer) (mL/min) >60 Est GFR (Non-Af Amer) (mL/min) >60 Glucose (70 - 110 mg/dL) 105 Plasma Calcium (8.5 - 10.1 mg/dL) 9.2 Plasma Magnesium (1.8 - 2.4 mg/dL) 1.8 Total Bilirubin (0.0 - 1.0 mg/dL) 0.6 AST (15 - 37 U/L) 24 ALT (12 - 78 U/L) 45 Alkaline Phosphatase (46 - 116 U/L) 83 Creatine Kinase (24 - 260 U/L) 110 131 Troponin (0.00 - 1.5 ng/mL) <0.05 <0.05 Total Protein (6.4 - 8.2 g/dL) 7.7 Albumin (3.3 - 5.0 g/dL) 4.1 Free T4 Calculated (0.78 - 4.13 ng/dL) 1.08 TSH 3rd Generation (0.34 - 3.74 uIU/mL) 5.221 Coagulation INR (0.8 - 1.2) 0.9 APTT (24 - 34 SECONDS) 29 D-Dimer, Quantitative (0.27 - 0.52 ug/mLFEU) < 0.27 Hematology WBC (4.5 - 11.5 K/uL) 5.3 RBC (4.00 - 5.20 M/uL) 4.98 Hgb (12.0 - 16.0 gm/dL) 15.2 Hct (36.0 - 46.0 %) 44.6 MCV (80 - 100 fL) 90 MCH (26 - 34 pg) 31 RDW (11.6 - 14.8 %) 12.6 Neut % (Auto) (50 - 75 %) 40.8 Lymph % (Auto) (25 - 40 %) 46.0 [place] % (Auto) (3 - 14 %) 8.3 Eos % (Auto) (0 - 4 %) 4.1 Baso % (Auto) (0 - 2 %) 0.8 Plt Count, EDTA (150 - 400 K/uL) 236 PUBS MCHC (31 - 37 g/dL) 34 Toxicology Plasma/Serum Ethyl Alc (3 - 10 mg/dL) <3 Microbiology Date/Time Procedure - Status Source Growth 01/28 0600 MRSA Screen - RECD NASAL Assessment and Plan Problem List 1. Chest pain Plan -no chest pain overnight -Back discomfort -Check exercise-Cardiolite stress test today -plan discharge this p.m. if stable 2. Palpitations Plan -No significant arrhythmias noted last night and monitor -patient stated she felt palpitations but these were not noted on cardiac monitoring -monitor -no significant arrhythmias identified this time 3. Abnormal EKG Plan -patient with admission EKG abnormalities -nonspecific -exercise stress test -echocardiogram 4. Hypothyroid Plan -patient with findings of hypothyroidism -TSH elevated -begin Synthroid 0.05 mg by mouth daily -outpatient follow-up with PCP Current status: Fair, stable Anticipated discharge date: Today Anticipated discharge placement: Home Patient care time: Time spent in chart review, patient interview, physical exam, CPOE, and care documentation: 30 minutes Visit to patient today: 2 Complexity of care: Moderate For other recommendations regarding discharge diet, activity, followup, and discharge medications please see the patient's discharge instructions. Greater than 30 min. was spent in the patient's discharge preparation including discharge interview and physical examination, progress note, discharge instructions, and discharge summary E&M Codes Discharge: Observation - All/[id number]
--- NOTE | 2017-01-28 08:19 | Discharge Summary ---
Discharge Summary Report Admit Date 01/28/17 Discharge Date 01/28/17 Admission Diagnosis 1. Chest pain-rule out ACS 2. Palpitations 3. Hypothyroidism Discharge Diagnosis 1. Chest pain-ACS ruled out 2. Palpitations 3. Hypothyroidism Brief History The patient is a 41-year-old white female without a significant past medical history who began to experience worsening chest palpitations over the past 3 days. Patient has had no other known cardiac workup for heart disease. . Secondary to the above, the patient was admitted under observation by Boris Jones M.D for further evaluation and treatment. For other history present illness, past medical history, family history, social history, review of systems, and admission physical examination please see the patient's history and physical examination and ER visit note in the patient's medical record. Hospital Course The following problems and their management were noted during the patient's hospitalization: 1. Chest pain-ACS ruled out Patient presented with history of back and chest discomfort. Serial troponin/ EKG showed no signs of acute ischemia/infarction. Echocardiogram was unremarkable. Normal LV function. Normal valvular function. Exercise- Cardiolite stress test undertaken secondary to EKG abnormalities. There were persistent EKG abnormalities noted on EKG portion of stress test. Patient had high level of performance on stress test. Stress test shows changes suggestive of ischemia but may represent false positive. Nuclear medicine portion of stress test pending at discharge. Patient discharged home with low activity level until stress test reviewed with Dr. Jones on January 31, 2017. Aspirin 81 mg by mouth daily 2. Palpitations No significant arrhythmias noted during the patient's hospitalization. Outpatient follow-up with PCP. 3. Hypothyroidism Patient with elevation of TSH. Begin Synthroid 0.05 mg by mouth daily outpatient follow-up with PCP. Lab/Imaging Laboratory Tests 01/28 01/28 01/28 01/28 0335 0035 0033 0033 Chemistry Plasma Sodium (136 - 145 mmol/L) 141 Plasma Potassium (3.5 - 5.1 mmol/L) 3.5 Plasma Chloride (98 - 107 mmol/L) 105 CO2 (Enzymatic) (21 - 32 mmol/L) 26 BUN (7 - 18 mg/dL) 10 Creatinine (0.6 - 1.3 mg/dL) 0.8 Est GFR ( Amer) (mL/min) >60 Est GFR (Non-Af Amer) (mL/min) >60 Glucose (70 - 110 mg/dL) 105 Plasma Calcium (8.5 - 10.1 mg/dL) 9.2 Plasma Magnesium (1.8 - 2.4 mg/dL) 1.8 Total Bilirubin (0.0 - 1.0 mg/dL) 0.6 AST (15 - 37 U/L) 24 ALT (12 - 78 U/L) 45 Alkaline Phosphatase (46 - 116 U/L) 83 Creatine Kinase (24 - 260 U/L) 110 131 Troponin (0.00 - 1.5 ng/mL) <0.05 <0.05 Total Protein (6.4 - 8.2 g/dL) 7.7 Albumin (3.3 - 5.0 g/dL) 4.1 Free T4 Calculated (0.78 - 4.13 ng/dL) 1.08 TSH 3rd Generation (0.34 - 3.74 uIU/mL) 5.221 Coagulation INR (0.8 - 1.2) 0.9 APTT (24 - 34 SECONDS) 29 D-Dimer, Quantitative (0.27 - 0.52 ug/mLFEU) < 0.27 Hematology WBC (4.5 - 11.5 K/uL) 5.3 RBC (4.00 - 5.20 M/uL) 4.98 Hgb (12.0 - 16.0 gm/dL) 15.2 Hct (36.0 - 46.0 %) 44.6 MCV (80 - 100 fL) 90 MCH (26 - 34 pg) 31 RDW (11.6 - 14.8 %) 12.6 Neut % (Auto) (50 - 75 %) 40.8 Lymph % (Auto) (25 - 40 %) 46.0 [place] % (Auto) (3 - 14 %) 8.3 Eos % (Auto) (0 - 4 %) 4.1 Baso % (Auto) (0 - 2 %) 0.8 Plt Count, EDTA (150 - 400 K/uL) 236 PUBS MCHC (31 - 37 g/dL) 34 Toxicology Plasma/Serum Ethyl Alc (3 - 10 mg/dL) <3 Microbiology Date/Time Procedure - Status Source Growth 01/28 0600 MRSA Screen - RECD NASAL Discharge Instructions/Meds For other recommendations regarding discharge diet, activity, followup, and discharge medications please see the patient's discharge instructions. Discharge condition: Fair, improved Greater than 30 min. was spent in the patient's discharge preparation including discharge interview and physical examination, progress note, discharge instructions, and discharge summary The patient was interviewed and examined on the day of discharge. E&M Codes Discharge: Observation - All/[id number]
[2017-01-28] MEDS ORDERED: TYLENOL325 MG PO (20:50)
[2017-01-28] MEDS ORDERED: BAYER ASPIRIN E81 M1 PO (20:53)
[2017-01-28] MEDS ORDERED: SYNTHROID50 MCG PO (20:53)
--- NOTE | 2017-01-28 20:57 | Provider's Discharge Care Plan ---
Problem, Goal, Plan Problem List 1. Chest pain Goals: Improve disease control, Prevent disease progress Instructions: Follow up as directed, Take meds as directed, Call Dr. Jones after 10:00 am on January 31, 2017 for final results of stress test at . No strenouss activity until results of stress test discussed with Dr. Jones. 2. Hypothyroid Goals: Improve disease control, Prevent disease progress Instructions: Follow up as directed, Take meds as directed, Have your family physician recheck your thyroid function in one month.
--- NOTE | 2017-01-28 20:57 | Provider's Discharge Care Plan ---
Problem, Goal, Plan Problem List 1. Chest pain Goals: Improve disease control, Prevent disease progress Instructions: Follow up as directed, Take meds as directed, Call Dr. Jones after 10:00 am on January 31, 2017 for final results of stress test at . No strenouss activity until results of stress test discussed with Dr. Jones. 2. Hypothyroid Goals: Improve disease control, Prevent disease progress Instructions: Follow up as directed, Take meds as directed, Have your family physician recheck your thyroid function in one month.
--- NOTE | 2017-01-29 10:25 | DIAGNOSTIC IMAGING REPORT ---
REFERRING PHYSICIAN/PROVIDER: Pop Sierra MD CONSULTING PACKERHEAD MACHINE OPERATOR: Gilmer Garrett MD PROCEDURE: M-mode 2D echocardiography with spectral and color flow Doppler TECHNICAL QUALITY: Fair INDICATION: ABNORMAL ECG, RHYTHM DURING PROCEDURE: Normal sinus rhythm INTERPRETATIONS: LEFT VENTRICLE: The left ventricle is normal in size wall thickness and systolic function without any focal wall motion abnormalities. The ejection fraction is calculated at 56%. There is normal diastolic function noted. There is calcification noted at the left ventricular apex which is of no clinical significance. RIGHT VENTRICLE: The right ventricle is normal in size and function. ATRIA: Both atria are normal in size. The interatrial septum is intact with no evidence for an atrial septal defect. MITRAL VALVE: The mitral valve is grossly normal. There is trace mitral regurgitation noted. AORTIC VALVE: The aortic valve is trileaflet. The aortic valve opens well. There is no evidence of aortic regurgitation noted. TRICUSPID VALVE: Expansion valve leaflets are thin and pliable. There is trace tricuspid regurgitation noted. Estimated right ventricular systolic pressure could not be accurately obtained. PULMONIC VALVE: The pulmonic valve appears normal. There is trace pulmonic regurgitation noted. GREAT VESSELS: The aortic root is normal in size. PERICARDIUM: There is a trace physiologic pericardial effusion noted. IMPRESSION: 1. Normal biventricular size and systolic function (LVEF = 56%) 2. Normal biatrial size 3. No significant valvular disease 4. Unable to estimate right ventricular systolic pressure
--- NOTE | 2017-01-31 12:22 | DIAGNOSTIC IMAGING REPORT ---
PROCEDURE: Single day sestamibi interpretation CLINICAL INDICATION: Chest pain TECHNIQUE: 10 mCi tech sestamibi was injected at rest with SPECT tomography performed some time later the patient underwent treadmill testing with 30 mCi of tech sestamibi injected 1-2 minutes prior to termination exercise with SPECT tomography then performed rest and stress images were then compared. COMPARISON: None FINDINGS: For treadmill portion of the study please see Internal Medicine this dictation Left Ventricular size is seen to be normal. There is a small anteroseptal area that is ischemic in nature of mild density. No defects seen are seen elsewhere.. Ventricular size is normal ejection fraction 51% with normal contraction Abnormal study: There is seen to be a small anteroseptal area of ischemia present a mild density Left Ventricular ejection fraction 51% with normal contraction in normal LV size.
--- NOTE | 2017-02-01 21:19 | ED DISCHARGE INSTRUCTIONS ---
Patient: SOLOMON SWAN General Instructions [facility] VisitID: [id number] [place] [address] 41y, F Registration Date/Time: 01/28/2017 Chest pain. Abnormal EKG: depressed ST segments and inverted T waves. Palpitations. Abnormal tests. Hypothyroidism. INSTRUCTIONS Prescription Medications: Levothyroxine 25 mcg: take 1 orally every 24 hours. Dispense thirty (30). No refills. ADDITIONAL INFORMATION Hypothyroidism You have been diagnosed with hypothyroidism. This means your thyroid gland is not producing enough thyroid hormone. This hormone is important to body growth and metabolism. If you don't have enough, many body processes slow down, causing mental and physical sluggishness. A variety of other symptoms may occur and vary from mild to severe. The most severe form of this illness is called myxedema. Signs Of Hyperthyroidism (too much thyroid hormone, which can be a side effect of treatment for low thyroid): Restlessness, nervousness Increased appetite with weight loss Excess sweating Palpitations or irregular heartbeat Feeling overheated Signs Of Hypothyroidism (too little thyroid hormone): Fatigue or sluggishness Difficulty concentrating or thinking clearly; forgetfulness Dry skin, hair loss Depression Unexpected weight gain Feeling cold, or cold hands and/or feet Home Care: Take your medicine exactly as directed at the same time every day. Don't take thyroid pills with soy milk since this interferes with absorption. After taking your thyroid medicine: Wait 4 hours before eating or drinking anything that contains soy. Wait 4 hours before taking iron supplements, antacids that contain either calcium or aluminum hydroxide, or calcium supplements (regular amounts of cows milk are probably okay). Do not stop treatment on your own. If you do, your symptoms will return. Eat a high-fiber, low-calorie diet to relieve constipation and maintain a healthy weight. Get regular exercise. Talk to your doctor about an exercise program that is right for you. Follow Up with your doctor or as advised by our staff. Your thyroid level will need to be monitored for the rest of your life. During your routine visits, tell your doctor about any symptoms such as the ones listed below. Get Prompt Medical Attention if any of the following occur: Extreme fatigue Puffy hands, face, or feet Chest pain or trouble breathing Palpitations or irregular heartbeat Confusion or loss of consciousness You have been given the following additional information: Hypothyroidism (Electronically signed by Jeremy Mendez MD 02/01/2017 21:19)
--- NOTE | 2017-02-01 21:19 | ED MED RECONCILIATION SUMMARY ---
Patient: SOLOMON SWAN Medication Reconciliation Report Located [facility] VisitID: [id number] [address] [place] [address] 41y, F Registration Date/Time: 01/28/2017 Weight: 68.0 kg Height/Length: 63 in. BMI: 26.6 ALLERGIES: Penicillins The patient's Home Medications are listed below: NONE. The source(s) of the original Home Medication information: Not obtained. The following Medications were given to the patient in the Emergency Department: Aspirin [PO] PO 325 mg, administered: 01/28/2017 1:07:00 AM The following Medications were prescribed to the patient: Levothyroxine 25 mcg: take 1 orally every 24 hours. Dispense thirty (30). No refills. -- Jeremy Mendez MD
--- NOTE | 2017-02-01 21:19 | ED MED RECONCILIATION SUMMARY ---
Patient: SOLOMON SWAN Medication Reconciliation Report [facility] VisitID: [id number] [address] [place] [address] 41y, F Registration Date/Time: 01/28/2017 Weight: 68.0 kg Height/Length: 63 in. BMI: 26.6 ALLERGIES: Penicillins The patient's Home Medications are listed below: NONE. The source(s) of the original Home Medication information: Not obtained. The following Medications were given to the patient in the Emergency Department: Aspirin [PO] PO 325 mg, administered: 01/28/2017 1:07:00 AM The following Medications were prescribed to the patient: Levothyroxine 25 mcg: take 1 orally every 24 hours. Dispense thirty (30). No refills. -- Jeremy Mendez MD
--- NOTE | 2017-02-01 21:19 | ED MAR SUMMARY ---
..... Medication Administration Record [facility] [address] [place] [address] Patient: SOLOMON SWAN Visit ID: [id number] 41y, F Weight: 68.0 kg Height/Length: 63 in BMI: 26.6 ALLERGIES: Penicillins Given 01:07 01/28/2017 Holly Chang RMyriam Medication Administered: ASPIRIN [PO], Dose: 325 mg Tablets PO. Medication Ordered: Aspirin PO 325 mg (NOW).
--- NOTE | 2017-02-01 21:19 | ED MAR SUMMARY ---
..... Medication Administration Record [facility] [address] [place] [address] Patient: SOLOMON SWAN Visit ID: [id number] 41y, F Weight: 68.0 kg Height/Length: 63 in BMI: 26.6 ALLERGIES: Penicillins Given 01:07 01/28/2017 Holly Chang RMyriam Medication Administered: ASPIRIN [PO], Dose: 325 mg Tablets PO. Medication Ordered: Aspirin PO 325 mg (NOW).
== END 2017-01-28 19:30 | disposition home or self-care (01) ==
LOC: ED SRH 00:12 → TRANS SRH 04:00 → CC SRH 04:00
PROVIDERS: ADMIT Pediatrics
PROC: 3E033HZ Introduction of Radioactive Substance into Peripheral Vein, Percutaneous Approach (ICD-10-PCS; principal; 2017-01-28)
PROC: 4A02XM4 Measurement of Cardiac Total Activity, External Approach (ICD-10-PCS; principal; 2017-01-28)
DX: R07.89 Other chest pain (principal); R00.2 Palpitations; R94.31 Abnormal electrocardiogram [ECG] [EKG]; Z72.0 Tobacco use; E03.9 Hypothyroidism, unspecified
CPT/HCPCS: 90074; 90100; 90616; 90648; 91556; 91672; 92010; 92132; 92610; 92720; 93140; 94001; 94060; 95059